=== PATIENT | female | born 1950 | race Caucasian/White ===

== ENCOUNTER → 2017-11-15 10:44 | Outpatient (CLI) | payer MEDICARE, SELFPAY ==
--- NOTE | 2017-11-15 11:10 | US_ITS ---
STUDY: THYROID ULTRASOUND REASON FOR EXAM: Female, 67 years old. Abnormal thyroid exam TECHNIQUE: Ultrasound evaluation of the thyroid was performed with real-time and static holden-scale imaging. COMPARISON: None. FINDINGS: RIGHT LOBE: The right lobe of the thyroid gland measures 4.2x1.8x2 cm. There is a homogeneous echotexture. Mid nodule measures 14 x 12 x 10 mm. The lesion is solid-cystic with regular margins and jyothi nodular doppler flow. LEFT LOBE: The left lobe of the thyroid gland measures 4.1x2.2x2.4 cm. There is a homogeneous echotexture. Mid nodule measures 10 x 7 x 6 mm. Inferior nodule measures 33 x 23 x 19 mm. Both lesions are solid with regular margins and intra- nodular doppler flow. ISTHMUS: The isthmus measures 3 mm US/Thyroid IMPRESSION: Bilateral thyroid nodules. The [employer] (AACE) in collaboration with the [employer] (RAMILA) and the Thyroid Association (ETA) published guidelines for the diagnosis and management of thyroid nodules. Biopsy of any solid and hypoechoic nodule larger than 1 cm in diameter. Thyroid nodules of any size undergo biopsy if the patient has been exposed to irradiation, has a family history of medullary carcinoma or multiple endocrine neoplasia, or has previously undergone partial thyroidectomy for thyroid cancer or if an elevated calcitonin level is present. The AACE/RAMILA/ETA guidelines recommend biopsy of nodules of any size with marked hypoechogenicity, irregular or microlobulated margins, a taller than wide configuration (anteroposterior dimension greater than transverse dimension), microcalcifications, or chaotic arrangement of intranodular vascular images or chaotic intranodular vascular spots. These guidelines recommend biopsy independent of size if ultrasonography suggests the presence of metastatic lymph nodes or if extracapsular growth is noted in the nodule. They recommend biopsy of the solid component of all complex cystic nodules because of the risk of cystic papillary carcinoma. They further suggest that nodules that are hot on scintigraphy do not require biopsy. -Current Guidelines for the Management of Thyroid Nodules. Devante Bates MD, KENNY, ECNU. Endocr Pract. 2012; 18(4): 596-599. Electronically Signed: Lei German MD at 18:06 EDT , Service support ,
== END ==
PROVIDERS: Family Provider Family Medicine; PCP Family Medicine; Visit Provider Family Medicine
DX: R94.6 Abnormal results of thyroid function studies (principal)
CPT/HCPCS: 76536

== ENCOUNTER → 2019-06-04 14:16 | Outpatient (CLI) | payer MEDICARE, OTHER, SELFPAY ==
[2019-06-04 14:23] LABS: Bacteria 0 SEEN /hpf (None Seen); Mucous, Urine 0 SEEN /hpf (<or=2+); Red Blood Cells-Urine 0 SEEN /hpf (0-5); Squamous Epithelial Cells - UA 0 SEEN /hpf (5-10)
[2019-06-04 15:39] LABS: Color, Urine Straw (Yellow); Glucose, Dipstick Normal (Normal); Ketone-Dipstick 5 mg/dl (Negative); Leukocyte Esterase-Dipstick 500 /ul (Negative); Nitrite-Dipstick Negative (Negative); Occult Blood-Urine Negative /ul (Negative); Protein-Dipstick Negative (Negative); Urine Bilirubin Dipstick Negative (Negative); Urine Clarity Clear (Clear); Urine Urobilinogen Normal (Normal); Urine pH 6.5 (5.0 - 8.0)
[2019-06-04 15:50] LABS: White Blood Cells 0-5 SEEN /hpf (0-5)
== END ==
LOC: LABSPEC 14:21
PROVIDERS: Visit Provider Obstetrics & Gynecology
DX: N39.0 Urinary tract infection, site not specified (principal)
CPT/HCPCS: 81001; 87086; 87088

== ENCOUNTER → 2019-07-24 08:25 | Outpatient (CLI) | payer MEDICARE, OTHER, SELFPAY ==
--- NOTE | 2019-07-24 08:36 | US_ITS ---
STUDY: RENAL ULTRASOUND - COMPLETE REASON FOR EXAM: Female, 69 years old. H/o stones TECHNIQUE: Ultrasound evaluation of the kidneys was performed with real-time and static romero-scale imaging. COMPARISON: 01/03/11. FINDINGS: Right kidney: Measures 10.4 cm. Normal contour. Renal cortical thickness appears normal. No cysts. No masses, stones, or hydronephrosis identified. Left kidney: Measures 11.3 cm. Normal contour. Renal cortical thickness appears normal. 1.3 cm cyst. No masses, stones, or hydronephrosis identified. Bladder: No intrinsic masses, stones, or abnormal dilatation noted. US/Kidney and Bladder IMPRESSION: No renal stones or hydronephrosis identified. Electronically Signed: Rocky Haddad, at 22:00 EDT Tel , Service support ,
== END ==
PROVIDERS: PCP Family Medicine; Referring Provider Urology; Visit Provider Urology
DX: N20.0 Calculus of kidney (principal); N20.9 Urinary calculus, unspecified
CPT/HCPCS: 76770

== ENCOUNTER 2019-09-16 06:02 | Day surgery (SDC) | payer MEDICARE, OTHER, SELFPAY ==
[2019-09-16 06:32] VITALS: BP 128/85; PULSE 73; RESP 16; TEMP 36.4; O2SAT 100; BMI 26.2
[2019-09-16] MEDS: Lactated Ringers 1,000 ML 100 ML IV (06:49)
--- NOTE | 2019-09-16 07:22 | HP.PCM_ITS ---
Problem List (1) Bladder stones Status: Acute (2) Uterovaginal prolapse, incomplete Status: Acute History of Present Illness Date of Admission: 09/16/19 Chief Complaint: bladder stones with recurrent urinary tract infections and intermittent urinary retention The patient is a 69 year old F who presented to the office for evaluation and management of pelvic organ prolapse. As part of the evaluation, a cystoscopy was performed, which revealed several calculi in the urinary bladder. She has had several urinary tract infections with intermittent urinary retention. This has been increasing in occurrence recently. She now presents for definitive surgical intervention. Risks, benefits and alternatives were discussed with the patient including but not limited to the risks of anesthesia, bleeding, infectio n, injury and the [place] [id number] public [facility] emergency. She understands and desires to proceed with surgical intervention at this time. Past Medical History Allergies Sulfa (Sulfonamide Antibiotics) Allergy (Verified 09/11/19 08:14) very sick and went to hospital Home Medications: Ambulatory Orders Medication Instructions Recorded Cholecalciferol (Vitamin D3) 50 mcg PO DAILY 07/25/19 [Vitamin D3] Lovastatin [Mevacor] 20 mg PO DAILY 07/25/19 L.acidoph,Paracasei, B.lactis 1 ea PO DAILY 09/11/19 [Probiotic] Phenazopyridine HCl [Pyridium] 200 mg PO PRN PRN 09/11/19 Cephalexin [Keflex] 500 mg PO TID 09/16/19 Smoking Status: Never smoker Tobacco Use: Non-smoker Review of Systems Constitutional: Denies: Chills, Fever Eyes: Denies: Vision Change HEENT: Denies: Difficulty Hearing, Difficulty Swallowing, Dysphasia Cardiovascular: Denies: Chest Pain, Chest Pressure, Chest Tightness Respiratory: Denies: Cough, Shortness of Breath Gastrointestinal: Denies: Abdominal Pain, Constipation, Nausea, Vomiting Genitourinary: Reports: Frequency, Hematuria, Retention, Urgency Gynecological: Denies: Breast symptoms, Vaginal discharge Musculoskeletal: Denies: Muscle pain Skin: Denies: Wounds Neurological: Denies: Difficulty swallowing Endocrine: Denies: Change in Body Habitus Hematologic/ Lymphatic: Denies: Adenopathy VTE Information - Inpt Only VTE Present on Admission: Yes VTE Mechan Device Prophylaxis: SCD's VTE Pharm Prophylaxis ordered?: No Reason prophylaxis not ordered:: Treatment Not Indicated Patient Problems: Active and Suspected Problems Bladder stones (Acute) Uterovaginal prolapse, incomplete (Acute) - Physical Exam Vitals/I&O's: Vital Signs Temp Pulse Resp BP Pulse Ox 97.5 F L 73 16 128/85 H 100 09/16/19 06:32 09/16/19 06:32 09/16/19 06:32 09/16/19 06:32 09/16/19 06:32 Oxygen Delivery Method Room Air Weight: 71.3 kg Body Mass Index (BMI) 26.2 General: Alert, Oriented x3, Cooperative, No apparent distress HEENT: Atraumatic, Normocephalic Oral: Moist Mucosa Neck: Supple, Trachea Midline Lungs: Clear to auscultation, Normal air movement Cardiovascular: Regular rate, Regular Rhythm Abdomen: Soft, Non Tender, Non-Distended Extremities: No edema Skin: No rashes Musculoskeletal: No Muscle Wasting Neurological: Cranial nerves II-XII grossly intact Psych/Mental Status: Normal Affect, Alert and oriented to time, place, person, mood and affect Current Medications Cefazolin Sodium 2 gm/ Sodium (Chloride) 110 mls @ 150 mls/hr IV PREOP ONE Stop: 09/16/19 07:43 Lactated Ringer's () 1,000 mls @ 100 mls/hr IV .Q10H JULIANA Last Admin: 09/16/19 06:49 Dose: 100 mls/hr Documented by: Assessment/Plan All Active Problems Bladder stones (Acute) Uterovaginal prolapse, incomplete (Acute) cystoscopy, laser lithotripsy, removal bladder stones Essential Procedure Criteria Procedure Essential: Yes Criteria Note: On 07/29/2019 the [facility] ([facility]) Public Order signed by [facility] Director Ayla Ramos M.D., regarding the Management of Non- Essential Surgeries and Procedures for the purpose of preserving Personal Protective Equipment (PPE) and critical hospital capacity and resources within [place] went into effect as of 07/30/2019 at 5:00PM. According to the [facility] Public Order: This action will remain in full force and effect until the State of Emergency declared by the Governor no longer exists or the Director of the [facility] rescinds or modifies this Order.. This [facility] order stated all non-essential or elective surgeries and procedures that utilize PPE should be delayed unless the re is undue risk to the current or future health of a patient. After reviewing the aforementioned [facility] Public Order and the patients clinical case, I have determined that the scheduled procedure meets the criteria to go forward. Risk to Patient if Procedure Delayed: Presence of severe symptoms causing an inability to perform ADL's - intermittent urinary retention and recurrent urinary tract infections, worsening
--- NOTE | 2019-09-16 07:29 | OP.PCM_ITS ---
Problem List (1) Bladder stones Status: Acute (2) Uterovaginal prolapse, incomplete Status: Acute Report of Operation Date of Procedure: 09/16/19 Pre-Operative Diagnosis: bladder stones, recurrent urinary tract infections, i ntermittent urinary retention Post-Operative Diagnosis: same Surgery/Procedure Performed:: cystoscopy, stone basket extraction Type of Anesthesia:: General Specimen's removed: bladder stones Description of Procedure: The patient is a 69-year-old female who presents for cystoscopy and removal of bladder calculi. The risks benefits and alternatives were discussed including but not limited to the risks of anesthesia, injury, bleeding, infection, and COVID 19 infection. The patient understood and desired to proceed. She was taken to the operating room and placed on the operating room table. Anesthesia monitored the head, neck, airway, IV access and vital signs thro ughout the case. Once anesthesia was appropriately administered, the patient was placed into dorsal lithotomy position was prepped and draped in usual sterile fashion. At this time, the cystoscope was inserted through the urethra under direct visualization and into the urinary bladder. Upon visualization, there were no bladder mucosal abnormalities including mass, ulceration or areas of erythema. There was one small stone remaining which was basket retrieved. The stones previously seen in the office were no longer within the urinary bladder. The patient's bladder was then emptied and the case was terminated. The patient was awakened and taken to the recovery room in good condition. There were no complications during the procedure. - Complications none - Admit VTE Documentation VTE Present on Admission: Yes VTE Mechan Device Prophylaxis: SCD's VTE Pharm Prophylaxis ordered?: No Reason prophylaxis not ordered:: Treatment Not Indicated
--- NOTE | 2019-09-16 07:30 | DCINST_ITS ---
Discharge Diet: No Restrictions Discharge Activity: May not drive while taking narcotic pain medications., May Shower May resume sexual activity in: 1 week Call your doctor if you observe: Fever of 101 or Higher, Inability to urinate, Inability to have a bowel movement, Uncontrolled pain Allergies/Adverse Reactions: Allergies Sulfa (Sulfonamide Antibiotics) Allergy (Verified 09/11/19 08:14) very sick and went to hospital Medications to take at Discharge Cholecalciferol (Vitamin D3) [Vitamin D3] 50 mcg PO DAILY 07/25/19 Lovastatin [Mevacor] 20 mg PO DAILY 07/25/19 L.acidoph,Paracasei, B.lactis [Probiotic] 1 ea PO DAILY 09/11/19 Phenazopyridine HCl [Pyridium] 200 mg PO PRN PRN 09/11/19 Cephalexin [Keflex] 500 mg PO TID 09/16/19 Primary Care Physician: Pedro Worthy MD [Primary Care Provider] - Test Results: Test results from this visit will be discussed in further detail at your follow- up appointment, if applicable. Please Follow Up With: Darshana Stephen MD When: office will call you to schedule urodynamics Proposed Discharge Date: 09/16/19
[2019-09-16] MEDS: Cefazolin 2 GM in 0.9% Normal Saline 100 ML IV (07:36)
[2019-09-16] MEDS: Lubricating Jelly 60 GM Tube 30 GM TOPICAL (07:44)
[2019-09-16 08:02] VITALS: BP 111/63; BP 128/85; PULSE 70; RESP 18; TEMP 36.9; O2SAT 10
[2019-09-16 08:05] VITALS: BP 105/66; BP 128/85; PULSE 68; RESP 18; O2SAT 98
[2019-09-16 08:15] VITALS: BP 106/64; BP 128/85; PULSE 71; RESP 18; TEMP 37.2; O2SAT 100
[2019-09-16 09:11] VITALS: BP 116/67; BP 128/85; PULSE 74; RESP 16; TEMP 36.2; O2SAT 98
== END 2019-09-16 09:23 | disposition home or self-care (01) ==
LOC: SDC 06:04 → AC 06:04
PROVIDERS: PCP Family Medicine; Referring Provider Urology; Visit Provider Urology
PROC: (CPT 52353; principal; 2019-09-16 07:20)
DX: N21.0 Calculus in bladder (principal); R33.9 Retention of urine, unspecified; Z87.440 Personal history of urinary (tract) infections; Z88.2 Allergy status to sulfonamides; N81.2 Incomplete uterovaginal prolapse
CPT/HCPCS: 52310; 52317; J7120; J2405

== ENCOUNTER 2019-11-13 09:45 | Observation (INO) | payer MEDICARE, OTHER, SELFPAY ==
[2019-11-07 17:12] LABS: International Normalized Ratio 1.1; Prothrombin Time (Protime)PT. 13.2 SECONDS (11.7-14.9)
[2019-11-07 17:13] LABS: Partial Thromboplast Time 27.9 Seconds (24.1-36.2)
[2019-11-13] VITALS (19 sets, daily range): BP systolic 84–140; BP diastolic 51–75; PULSE 58–79; RESP 14–18; TEMP 36.3–37.2; O2SAT 94–100; BMI 26.1
--- NOTE | 2019-11-13 01:00 | PCM.HPOB.BLA ---
- Problem List (1) Uterovaginal prolapse, incomplete Status: Acute History and Physical Date of Admission: 11/13/19 Surgical History and Physical Date: 11/13/2019 Name: HYUN CABEZAS Age: 69 Date of : 1950 Hyun Cabezas, a 69 year old female 2 0 0 0 2, presents for TVH, bilateral salpingectomy Dr Stephen to complete - AP repair, cystoscopy, Sacrospinous liegament suspension by on November 13, 2019 at 7:30. -- Pre-Op -- Hyun is here for her preop. TVH scheduled for 11/13/2019. Updated medications and allergies. Surgery consents reviewed and signed. hx uterovaginal prolapse, cystocele and rectocele scheduled for joint TVH with Dr. Stephen performing AP repair possible vaginal vault suspension procedure. [facility] MEDICATIONS HISTORY: Patient is also takin. lovastatin 20 mg tablet, daily ALLERGIES: Sulfa (Sulfonamide Antibiotics), Intolerance-unknown Infections - Chicken pox, Mumps and Measles Illnesses - Hyperlipidemia Accidents - no injuries of consequence Hospitalizations - see surgery Shingles; Review of Systems: GENERAL - Denies fever, or chills SKIN - Denies skin changes EYES - Denies visual changes EARS - Denies difficulty hearing NOSE - Denies nasal congestion or bleeding MOUTH - Denies sore throat or difficulty swallowing NECK - Denies pain or swelling RESPIRATORY - Denies shortness of breath or wheezing CARDIOVASCULAR - Denies palpitations or chest pain GASTROINTESTINAL - Denies nausea, vomiting, diarrhea, constipation GENITOURINARY - Denies dysuria, frequency of urination, incontinence of urine MUSCULOSKELETAL - Denies joint or muscle pain NEUROLOGICAL - Denies localized numbness or weakness PSYCHIATRIC - Denies depression or anxiety ENDOCRINE - Denies heat or cold intolerance, weight loss or gain HEMATO-IMMUNOLOGIC - Denies excesive bleeding with cuts SOCIAL HISTORY: Alcohol Use - denies drinking Smoking - denies smoking Diet - weight watchers Lifestyle - Exercise - daily Employer - Retired Illicit Drug Use - denies use of street drugs Sexual Activity - Spouse-Sig Other Name - Ari Spouse-Sig Other Occupation - Retired Control - menopause FAMILY HISTORY: MENSTRUAL HISTORY: LMP Known?- Postmenopausal, Age Onset Menarche - 12 PAST PREGNANCIES: Total Pregnancies - 2; Full Term Pregnancies - 2; Premature - 0; Abortions, Induced - 0; Abortions, Spontaneous - 0; Ectopics - 0; Multiple Births - 0; Living Children - 2 SURGICAL HISTORY: 1. Umbilical Hernia,2011 ; - 2. Parathyroid surgery, 2011 ; - PHYSICAL EXAM BP- 132/76 Sitting, Right arm, regular cuff Weight- 152.06156 lbs Height- 63.25 inch BMI:26.87 CONSTITUTIONAL - NAD, well nourished, and well developed SKIN - No rash, lesions, or ulcers HEENT - Normocephalic, PERRLA, EOMI LYMPH NODES - Palpation of lymph nodes in neck and groins within normal limits LUNGS - CTA x2 without wheezes, crackles or rales CARDIAC - Regular rate and rhythm without rubs, murmurs, or gallops ABDOMEN - Without hepatosplenomegaly, distention, masses, rebound, or guarding; normal bowel sounds; no hernias EXTREMITIES - No edema or calf tenderness NEUROLOGICAL - normal gait, normal balance, normal motor PSYCHIATRIC - A and O to time, place, person, mood and affect External Genitial Vagina - non-tender without lesions Urethra/Urethral Meatus - non-tender Bladder - non-tender Vagina - vaginal white are pink and moist without loss of rugae and no evidence of atrophy, cystocele, rectocele Cervix - without cervical motion tenderness and has normal size and features without evident lesions Uterus - 5-6 cm in size, mobile and nontender, Stage III uterovaginal prolapse Adnexa - clear without massess or tenderness Laboratory Tests 11/07/19 11/07/19 11/07/19 Range/Units 17:25 17:25 15:15 PT (11.7-14.9) SECONDS INR APTT (24.1-36.2) Seconds COVID-19 ([facility]) Results on MP report Not Detected (Not Detect) Blood Type A POSITIVE Antibody Screen NEGATIVE 11/07/19 Range/Units 07:10 PT 13.2 (11.7-14.9) SECONDS INR 1.1 APTT 27.9 (24.1-36.2) Seconds COVID-19 ([facility]) (Not Detect) Blood Type Antibody Screen ASSESSMENT/PLAN: 1. Cystocele, Unspecified, Incomplete Uterovaginal Prolapse and Rectocele Plan for TVH with prolapse repair by Dr. Stephen Discussed r/b ovarian conservation, following discussion plan for BSO. Procedural r/b/i/a reviewed Consents signed, preop instructions reviewed Preop labs with PCP reviewed and wnl. Continue vaginal estrogen Procedure Criteria Procedure Type: Elective COVID Risk Discussion: The surgeon/proceduralist and patient have discussed in detail the risk of exposure to and/or potential harm posed by the COVID-19 virus with having a surgery/procedure at this time versus the risk of delaying the surgery/procedure. It is not possible to know either the risk of delaying the surgery or procedure or chance of getting an infection with perfect accuracy, but a joint decision was made between the patient and the surgeon/proceduralist to proceed at this time with the scheduled surgery/procedure as indicated on the consent form.
[2019-11-13] MEDS: Lactated Ringers 1,000 ML 100 ML IV ×3 (06:38→12:19)
--- NOTE | 2019-11-13 07:30 | HYST_PTH ---
PATIENT: AYLEEN CABEZAS LOC: MS3 U#:[id number] AGE/SX: 69/F [place] [facility] [place]/13/[address]: Dr. Keyla Zhou MD : 1950 BED: 1 DIS: 11/14/2019 SPEC #: [id number] RECD: 11/13/19 12:27 STATUS: YFN REKuldip #: [id number] GLORIA: 11/13/19 07:[address]: Keyla Wolff DEPT: SURGICAL PATHOLOGY RECD BY: eNy Rodriguez ENTERED: 11/13/19 12:36 SP TYPE: HYSTERECT OTHR DR: MD Dr. Darshana Bennett MD Tissues: Uterus, NOS Procedures: Surgery Specimen Level V HEADER OPERATION: Total vaginal hysterectomy, bilateral salpingo-oophorectomy PRE-OP DIAGNOSIS: Cystocele, incomplete uterovaginal prolapse and rectocele TISSUE SUBMITTED: Uterus, cervix, bilateral fallopian tubes and ovaries, vaginal mucosa MICROSCOPIC DIAGNOSIS Uterus, cervix, bilateral fallopian tubes and ovaries, vaginal hysterectomy and bilateral salpingectomy: Cervix - acute and chronic cystic cervicitis with squamous metaplasia and reactive epithelial changes. Endometrium - simple cystic endometrial hyperplasia without atypia. Endometrial polyp - simple endometrial hyperplasia without atypia. Myometrium - focal adenomyosis. Bilateral fallopian tubes - no pathologic diagnosis. Right ovary - no pathologic diagnosis. 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 SJ:jelena 11/17/19 COMMENT Case has been reviewed in consultation with Dr. Owens who concurs with the above diagnosis. IDC:AM MICROSCOPIC DESCRIPTION Slides are reviewed. GROSS DESCRIPTION Received in fixative is one container labeled with the patient's name and designated uterus, cervix, bilateral fallopian tubes and bilateral ovaries. The specimen consists of a hysterectomy specimen consisting of uterus with cervix, attached right fallopian tube, left fallopian tube and left ovary and detached ovary consistent with right ovary. Detached mucosal tissue consistent with vaginal mucosa is not identified. The uterus with cervix weighs 82 gm and measures 9.5 x 5.5 x 3.5 cm. The serosal surface is stack, glistening. The ectocervical mucosa is unremarkable. The external os is circular in contour. The endocervical canal measures 3.5 cm in length and the endocervical mucosa is unremarkable. The triangular endometrial cavity measures 5.5 cm in length and up to 3.5 cm in width. The endometrium shows a polyp at the fundus in the posterior uterine wall measuring 2 x 1.2 x 0.2 cm. The myometrial wall underneath the polyp is not indurated. The rest of the endometrium measures 0.1 cm in thickness. Sections of the uterine wall do not reveal any mass lesion and it measures up to 2 cm in thickness. The right fallopian tube measures 4.5 cm in length and 0.4 cm in diameter. The fimbrial end is not identified. Sections reveal unremarkable cut surfaces. The detached right ovary measures 2 x 1.5 x 1 cm. Sections reveal unremarkable cut surfaces. The left fallopian tube measures 5.5 cm in length and 0.5 cm in diameter. The fimbrial end is identified. Sections reveal unremarkable cut surfaces. Tubo-ovarian adhesions are not identified. The left ovary measures 3.5 x 1.5 x 1 cm. Sections reveal a hemorrhagic cyst measuring 1.5 cm in greatest dimension. Supervisor Sample Preparation sections are submitted in 11 cassettes as follows: 1 - anterior cervix, 2 - posterior cervix, 3 & 4 - anterior uterine wall, 5 & 6 - posterior uterine wall, 7 - endometrial polyp with underlying uterine wall, entirely submitted, 8 - right fallopian tube, 9 - right ovary, 10 - left fallopian tube and left ovary, 11 - left ovary. / RAMONE:jelena 11/13/19 TC:3 CPT: 12425
[2019-11-13] MEDS: Heparin Injection (Vial) 5,000 UNIT/ML VIAL 5000 UNIT SC ×2 (07:32→18:24)
[2019-11-13] MEDS: Lubricating Jelly 60 GM Tube 30 GM TOPICAL (08:03)
--- NOTE | 2019-11-13 08:39 | HP.PCM_ITS ---
Problem List (1) Uterovaginal prolapse, incomplete Status: Acute History of Present Illness Date of Admission: 11/13/19 Chief Complaint: pelvic organ prolapse The patient is a 69 year old F with pelvic organ prolapse and difficulty with voiding to the point that she developed bladder stones. She now presents for definitive management of her prolapse after having urodynamics and cystoscopy and removal of stones. Risks, benefits and alternatives were discussed and she desires to proceed. Past Medical History Allergies Sulfa (Sulfonamide Antibiotics) Allergy (Verified 11/06/19 14:08) very sick and went to hospital Home Medications: Ambulatory Orders Medication Instructions Recorded Cholecalciferol (Vitamin D3) 50 mcg PO DAILY 07/25/19 [Vitamin D3] Lovastatin [Mevacor] 20 mg PO DAILY 07/25/19 L.acidoph,Paracasei, B.lactis 1 ea PO DAILY 09/11/19 [Probiotic] Phenazopyridine HCl [Pyridium] 200 mg PO PRN PRN 09/11/19 Smoking Status: Never smoker Tobacco Use: Non-smoker Review of Systems Constitutional: Denies: Anorexia, Chills, Fever Eyes: Denies: Vision Change HEENT: Denies: Difficulty Swallowing Cardiovascular: Denies: Chest Pain, Chest Pressure Respiratory: Denies: Cough, Shortness of Breath Gastrointestinal: Denies: Abdominal Pain, Nausea, Vomiting Genitourinary: Reports: Retention, Urgency. Denies: Hematuria Gynecological: Denies: Vaginal discharge Musculoskeletal: Denies: Muscle pain Skin: Denies: Wounds Neurological: Denies: Difficulty swallowing Endocrine: Denies: Change in Body Habitus Hematologic/ Lymphatic: Denies: Adenopathy VTE Information - Inpt Only VTE Present on Admission: Yes VTE Mechan Device Prophylaxis: SCD's VTE Pharm Prophylaxis ordered?: Yes - Physical Exam Vitals/I&O's: Vital Signs Temp Pulse Resp BP Pulse Ox 97.3 F L 64 14 140/68 H 100 11/13/19 06:05 11/13/19 06:05 11/13/19 06:05 11/13/19 06:05 11/13/19 06:05 Oxygen Delivery Method Room Air Weight: 70.1 kg Body Mass Index (BMI) 26.1 Intake and Output for Last 24 Hours 11/11/19 11/12/19 11/13/19 23:59 23:59 23:59 Intake Total 100 / 100 Balance 100 / 100 General: Alert, Oriented x3, Cooperative, No apparent distress HEENT: Atraumatic, Normocephalic Oral: Moist Mucosa Neck: Supple, Trachea Midline Lungs: Normal air movement Cardiovascular: Regular rate, Regular Rhythm Abdomen: Soft, Non Tender, Non-Distended Extremities: No clubbing Skin: No rashes Musculoskeletal: No Muscle Wasting Neurological: Cranial nerves II-XII grossly intact, Neuro grossly intact Psych/Mental Status: Normal Affect, Alert and oriented to time, place, person, mood and affect Current Medications Lactated Ringer's () 1,000 mls @ 100 mls/hr IV .Q10H JULIANA Last Admin: 11/13/19 06:38 Dose: 100 mls/hr Documented by: Assessment/Plan All Active Problems Bladder stones (Acute) Uterovaginal prolapse, incomplete (Acute) anterior repair, sacrospinous ligament fixation with dermis, cystoscopy Procedure Criteria Procedure Type: Elective COVID Risk Discussion: The surgeon/proceduralist and patient have discussed in detail the risk of exposure to and/or potential harm posed by the COVID-19 virus with having a surgery/procedure at this time versus the risk of delaying the surgery/procedur e. It is not possible to know either the risk of delaying the surgery or procedure or chance of getting an infection with perfect accuracy, but a joint decision was made between the patient and the surgeon/proceduralist to proceed at this time with the scheduled surgery/procedure as indicated on the consent form.
--- NOTE | 2019-11-13 08:43 | OP.PCM_ITS ---
Problem List (1) Uterovaginal prolapse, incomplete Status: Acute Report of Operation Date of Procedure: 11/13/19 Pre-Operative Diagnosis: pelvic organ prolapse Post-Operative Diagnosis: same Surgery/Procedure Performed:: anterior repair with dermis, bilateral sacrospinous ligament fixation, posterior repair, cystoscopy Type of Anesthesia:: General Specimen's removed: None Estimated Blood Loss (mL): 25 cc Description of Procedure: The patient is a 69-year-old female who has had significant pelvic organ prolaps e with retention of urine and bladder calculi. She underwent urodynamics and cystoscopy with removal of stones and now presents for definitive management of her prolapse. Risks benefits and alternatives were discussed including that of anesthesia, bleeding, infection, injury and COVID-19 specific risks. She understood and agreed to proceed. The patient was taken to the operating room and placed on the operating room table. Anesthesia monitored the head, neck, airway, IV access and vital signs throughout the case. Once anesthesia was appropriate ministered the patient was placed into dorsal lithotomy position and Dr. Jordyn Zhou performed a hysterectomy bilateral oophorectomy. The case was then turned over to ms following closure of the cuff which was performed in a vertical fashion. The anterior vaginal wall was isolated and injected submucosally with vasopressin for hydrostatic dissection and hemostatic control. A vertical incision approximately 2 cm in length was then made and sharp and blunt dissection was performed on either side. Dissection continued down to the ischial spines and the sacrospinous ligaments were identified and freed from surrounding tissues. The Capio device was then used to place an Ethibond suture 2 fingerbreadths from the ischial spine on both sides. The suture was then brought through a trimmed piece of dermis and then at the location of the apex through full-thickness vaginal mucosa. The dermis was then trimmed to length and sutured in interrupted fashion on either side of the periurethral space. The dermis was flat and an appropriate size for her vagina. It was trimmed on the sides and there is no not a significant easy place to suture the dermis laterally at the white line. At this time the vaginal mucosa was closed with running interlocking 2-0 Vicryl suture. The apex sutures were then tied down and the prolapse was reduced. Attention was then turned towards the posterior wall where the perineal body lacked support and there was a small rectocele distally. The submucosa was injected once again with vasopressin and an incision was made. Both sharp and blunt dissection was performed up to the level and just beyond the level of the rectocele defect. The rectovaginal fascia was identified and brought together in 2 layer closure and the perineal body was brought together in symmetric fashion in 2 layer closure as well. At this time the vaginal wall was closed with running interlocking 2-0 Vicryl. A cystourethroscopy was performed through the urethra, revealing no injury to the urinary bladder or urethra. Bilateral ureteral orifices were located in the area of the trigone. The patient was given methylene blue intravenously. Blue- tinged urine was seen from each ureteral orifice with a good jet. The Petersen catheter was replaced and the bladder was emptied. Vaginal packing was placed with estrogen cream. The patient was awakened and taken to the recovery room in good condition. There are no complications during this procedure. Grafts/Implants Used: Dermis, [place] from [employer] - Complications none - Admit VTE Documentation VTE Present on Admission: Yes VTE Mechan Device Prophylaxis: SCD's VTE Pharm Prophylaxis ordered?: Yes
--- NOTE | 2019-11-13 08:44 | DCINST_ITS ---
<Darshana Stephen - Last Filed: 11/13/19 08:44> Discharge Diet: No Restrictions Discharge Activity: May not drive while taking narcotic pain medications., May Shower May resume sexual activity in: 8 weeks Lifting Restrictions: no lifting over 5 pounds Additional Activity Instructions:: no strenuous activity, no exercise, no sexual activity, no swimming, hot tubs or tub bathing Call your doctor if your incision/area has: Continuous Slow Oozing, Sudden Increased Bleeding, Increased Pain/ Swelling, Foul Smelling Discharge Call your doctor if you observe: Fever of 101 or Higher, Inability to urinate, Inability to have a bowel movement, Uncontrolled pain Allergies/Adverse Reactions: Allergies Sulfa (Sulfonamide Antibiotics) Allergy (Verified 11/06/19 14:08) very sick and went to hospital Medications to take at Discharge Cholecalciferol (Vitamin D3) [Vitamin D3] 50 mcg PO DAILY 07/25/19 Lovastatin [Mevacor] 20 mg PO DAILY 07/25/19 L.acidoph,Paracasei, B.lactis [Probiotic] 1 ea PO DAILY 09/11/19 Phenazopyridine HCl [Pyridium] 200 mg PO PRN PRN 09/11/19 Primary Care Physician: Pedro Worthy MD [Primary Care Provider] - Test Results: Test results from this visit will be discussed in further detail at your follow- up appointment, if applicable. Please Follow Up With: Darshana Stephen MD When: call office for appt <Keyla Wolff - Last Filed: 11/13/19 10:33> Call your doctor if you observe: Using more than one pad per hour, Shortness of breath, Chest pain, Calf discomfort Suture Line Care: Avoid Pulling/Pushing Test Results: Test results from this visit will be discussed in further detail at your follow- up appointment, if applicable. Please Follow Up With: Keyla Ralph MD When: November 25 at 1:15pm
[2019-11-13] MEDS: Vasopressin 20 UNITS/ML Vial (09:28)
--- NOTE | 2019-11-13 09:52 | OP.PCM_ITS ---
Problem List (1) Uterovaginal prolapse, incomplete Status: Acute Report of Operation Date of Procedure: 11/13/19 Pre-Operative Diagnosis: 1. Uterovaginal prolapse Post-Operative Diagnosis: 1. Uterovaginal prolapse Surgery/Procedure Performed:: 1. Total vaginal hysterectomy. 2. Bilateral salpingo-oophorectomy. 3. Modified Coreas culdoplasty Description of Surgical Findings:: Normal tubes and ovaries bilaterally uterine procidentia Cystocele and rectocele automotive service assistant: Maryam Catalan Type of Anesthesia:: General Anesthesiologist: Wu Rendon Specimen's removed: uterus, cervix, bilateral tubes and ovaries Estimated Blood Loss (mL): 50 Description of Procedure: Indications: 69-year-old para 2 with a history of uterovaginal prolapse, cystocele and rectocele presents for scheduled TVH, BSO to be followed by AP repair, sacrospinous ligament fixation performed by Dr. Stephen. Procedural risks, benefits, indications and alternatives were reviewed. The patient desired to proceed surgically. She and her were given opportunity to ask questions prior to the procedure and questions were answered to their satisfaction. Procedure: The patient was brought to the operating room and signed was performed. She is placed in the dorsal supine position and induced under general anesthesia and intubated. She was repositioned into dorsolithotomy and examination under anesthesia performed revealing uterine positive intra-with cystocele and rectocele. The perineum was prepped and draped in sterile fashion. Straight catheterization of the bladder was performed. Patient was repositioned to high lithotomy and a weighted speculum was placed into the vagina the cervix was grasped using a single-tooth tenaculum. A total of 20 cc of dilute vasopressin (10 units in 100 cc normal saline) was injected cervically. A circumferential incision was made around the cervix using the scalpel. The vesicouterine membrane was dissected sharply and the curved Tez placed anteriorly however the anterior cul-de-sac peritoneum remained high in the pelvis. Attention was then turned posteriorly and the weighted speculum was removed. The rectovaginal septum was dissected to the level of the uterosacral ligament. The posterior cul-de-sac was entered sharply. A long weighted speculum was replaced vaginally and into the posterior cul-de-sac. The right than left uterosacral ligaments were Lexx clamped, cut and suture ligated using 0 Vicryl. 0 Vicryl was used for all sutures during this case. This was followed by serial clamping, cutting and suture ligation of the cardinal ligaments and uterine arteries bilaterally with care taken to incorporate each pedicle with the previous pedicle. The left tube was followed to its fimbria and the left infundibulopelvic ligament was isolated, clamped, cut and doubly suture ligated. At the right, the mesosalpinx was clamped, cut and suture ligated with freeing of the uterus, cervix, bilateral tubes and left ovary en bloc. The right ovary was grasped using [place] clamp and the right infundibulopelvic ligament was clamped, cut and doubly suture ligated with oophorectomy performed. The pelvic peritoneum was pursestringed with incorporation of the bilateral uterosacral ligaments to close off the cul-de-sac. The vaginal cuff was reapproximated using serial figure of 8 sutures with excellent hemostasis. At this time the procedure was turned over to Dr. Stephen. - Complications none - Admit VTE Documentation VTE Present on Admission: No VTE Mechan Device Prophylaxis: SCD's VTE Pharm Prophylaxis ordered?: Yes
[2019-11-13] MEDS: Estrogens,Conj. 1 Tube 1 DOSE (10:45)
[2019-11-13 12:26] LABS: Bedside Glucose 112 mg/dL (70-110)
[2019-11-13] MEDS: Acetaminophen 500 MG Tablet 1000 MG PO ×2 (15:38→23:33)
[2019-11-13] MEDS: Cefazolin 1 GM/50 ML BAG IV ×2 (15:38→23:34)
[2019-11-13] MEDS: oxyCODONE 5 MG Tablet PO (15:41)
[2019-11-13] MEDS: Ketorolac 15 MG/ML Vial IV ×2 (18:24→23:35)
[2019-11-13] MEDS: 0.9% Saline Lock 10 ML Syringe IV (23:42)
[2019-11-14] MEDS: oxyCODONE 5 MG Tablet PO (03:48)
[2019-11-14 03:50] VITALS: BP 103/53; PULSE 63; RESP 18; TEMP 36.4; O2SAT 95
[2019-11-14] MEDS: Ketorolac 15 MG/ML Vial IV ×2 (06:26→11:24)
[2019-11-14] MEDS: Heparin Injection (Vial) 5,000 UNIT/ML VIAL 5000 UNIT SC (06:27)
[2019-11-14] MEDS: Acetaminophen 500 MG Tablet 1000 MG PO ×2 (06:31→14:50)
[2019-11-14 06:39] LABS: Hematocrit 37.6 % (37-47); Hemoglobin 12.1 g/dL (12.0-15.0); Mean Corp Hgb Conc 32.2 g/dL (32-36); Mean Corpuscular Hgb 29.7 pg (27.0-32.0); Mean Corpuscular Volume 92.4 fL (81-99); Mean Platelet Vol. 10.3 fl (6.2-12.0); Platelet Count 162 K/mm3 (150-450); RBC Distribution Width CV 14.6 % (11.6-14.6); RBC Distribution Width SD 49.1 fl (35.1-43.9); Red Blood Count 4.07 M/mm3 (4.2-5.4); White Blood Count 8.1 K/mm3 (4.4-11.0)
[2019-11-14 07:06] LABS: Creatinine, Serum 0.59 mg/dL (0.55-1.02); EST Glomerular Filtration Rate 107 mL/min (>60); Est Glom Filt Rate - Afr Amer 130 mL/min (>60); Estimated Creatinine Clearance 45.85 ml/min
[2019-11-14 07:46] VITALS: O2SAT 96
--- NOTE | 2019-11-14 08:08 | PCM.PN.BLA ---
Progress Note Up eating breakfast. Passing gas. No back or abdominal pain. Little dizzy with narcotics. AFVSS good urine output. abdomen soft. urine clear. SCD's in place. Petersen removed without difficulty. Packing removed. POD#1 Trial of void today home later this afternoon post-op restrictions continue estrogen cream STROKE Vital Signs/Narrative: Vital Signs Pulse Ox 11/14/19 07:46 96
--- NOTE | 2019-11-14 08:52 | PN.OBGYN_ITS ---
Subjective: No issues overnight. Pain is minimal. No flatus yet. Denies chest pain, shortness of breath. Denies bleeding. OOB without difficulty. Objective: AVSS - Physical Exam Vitals/I&O's: Vital Signs Temp Pulse Resp BP Pulse Ox 97.6 F L 63 18 103/53 L 96 11/14/19 03:50 11/14/19 03:50 11/14/19 03:50 11/14/19 03:50 11/14/19 07:46 Oxygen Delivery Method Room Air Weight: 70.1 kg Body Mass Index (BMI) 26.1 Finger Stick Blood Glucose 112 Intake and Output for Last 24 Hours 11/12/19 11/13/19 11/14/19 23:59 23:59 23:59 Intake Total 3486.75 / 3486.75 250 / 250 Output Total 2650 / 2650 475 / 475 Balance 836.75 / 836.75 -225 / -225 General: Alert, Oriented x3, Cooperative, No apparent distress HEENT: Atraumatic, Normocephalic Lungs: Normal air movement Cardiovascular: Regular rate, Regular Rhythm Abdomen: Soft, Non Tender, Non-Distended Extremities: No edema, No Calf Tenderness Neurological: Neuro grossly intact Psych/Mental Status: Normal Affect, Appropriate, Alert and oriented to time, place, person, mood and affect Laboratory Results 11/13/19 12:20: POC Glucose 112 H 11/14/19 06:10: WBC 8.1, RBC 4.07 L, Hgb 12.1, Hct 37.6, MCV 92.4, MCH 29.7, MCHC 32.2, RDW Std Deviation 49.1 H, RDW Coeff of Cait 14.6, Plt Count 162, MPV 10.3 11/14/19 06:10: Creatinine 0.59, Estim Creat Clear Calc 45.85, Est GFR (MDRD) Af Amer 130, Est GFR (MDRD) Non-Af 107 Current Medications Acetaminophen (Tylenol) 1,000 mg PO Q8 [facility] Last Admin: 11/14/19 06:31 Dose: 1,000 mg Documented by: Heparin Sodium (Porcine) (Heparin Na) 5,000 unit SC 0700,1900 [facility] Last Admin: 11/14/19 06:27 Dose: 5,000 unit Documented by: Hydromorphone HCl (Dilaudid Inj) 0.5 - 1.5 mg IV Q3H PRN PRN PRN Reason: Pain Score 4-10/10 Sodium Chloride () 250 mls @ 15 mls/hr IV .[id number] PRN PRN Reason: Saline Flush Last Infusion: 11/13/19 16:20 Dose: 15 mls/hr Documented by: Ketorolac Tromethamine (Toradol (Bkc)) 15 mg IV Q6H JULIANA Stop: 11/18/19 11:44 Last Admin: 11/14/19 06:26 Dose: 15 mg Documented by: Ondansetron HCl (Zofran) 4 mg IV Q4H PRN PRN PRN Reason: NAUSEA Oxycodone HCl (Oxyir) 5 - 10 mg PO Q4H PRN PRN PRN Reason: Pain Score 4-10/10 Last Admin: 11/14/19 03:48 Dose: 5 mg Documented by: Simethicone (Mylicon) 80 mg PO [facility] Last Admin: 11/13/19 23:29 Dose: 80 mg Documented by: Sodium Chloride () 10 - 40 ml IV UD PRN PRN Reason: SALINE FLUSH Last Admin: 11/13/19 23:42 Dose: 10 ml Documented by: Medical Necessity - Tobacco Use Smoking Status: Never smoker Tobacco Use: Non-smoker Assessment/Plan All Active Problems Bladder stones (Acute) Uterovaginal prolapse, incomplete (Acute) pod#1 s/p TVH, BSO -doing well -may d/c later today
[2019-11-14 11:22] VITALS: BP 101/61; PULSE 64; RESP 18; TEMP 36.9; O2SAT 96
--- NOTE | 2019-11-14 11:47 | NURSING ---
Pt has gotten out of bed and walked in marte. Pt is aware to call and let this nurse know when she voids. Measuring hat in toilet. Pt also is aware that after she voids, needs bladder scanned. Pt is aware.
--- NOTE | 2019-11-14 11:55 | CASEMGMT ---
JONNA HOYOS NOTE To room to review HEATH form. JONNA HOYOS introduced self and role of RN CM. Reviewed HEATH form and questions answered. Form signed by pt, copy made and placed on chart, and original given to pt. Denis BROWN RN, CM
--- NOTE | 2019-11-14 12:12 | CASEMGMT ---
RN CM NOTE: To room to talk w/pt to compLete RN CM assessment. Pt is very painful and asks for RN CM to come back at a later time. JONNA Felix, aware of pt's pain. Denis DELGADILLON RN CM
--- NOTE | 2019-11-14 12:36 | NURSING ---
Pt up and voided 400cc. This nurse bladder scanned pt for 214. Will call Dr. Stephen at this time.
--- NOTE | 2019-11-14 12:39 | NURSING ---
Dr. Stephen wants pt to have less then 150cc in her bladder after voiding. order for pt to void again and have bladder scanned and then to call Dr. Stephen back again.
--- NOTE | 2019-11-14 14:07 | NURSING ---
Addendum entered by Vianney Moraes 11/14/19 14:34: Dr. Stephen per phone said it was okay to discharge pt without crabtree. Addendum entered by Vianney Moraes 11/14/19 14:10: Dr. Stephen aware of the bladder scan and post void results. Dr. Enriquez is going to discharge pt. Original Note: Pt voided again, 300cc and bladder scanned for 78ml.
[2019-11-14 15:10] VITALS: BP 101/67; PULSE 68; RESP 16; TEMP 36.7; O2SAT 98
== END 2019-11-14 15:06 | disposition home or self-care (01) ==
LOC: SDC 10:25 → MS3 10:25
PROVIDERS: Anesthesiology; Urology; Admitting Provider Obstetrics & Gynecology; PCP Family Medicine; Referring Provider Obstetrics & Gynecology; Visit Provider Obstetrics & Gynecology
PROC: (CPT 58260; principal; 2019-11-13 07:10)
PROC: (CPT 57260; 2019-11-13 07:10)
DX: N81.2 Incomplete uterovaginal prolapse (principal); Z11.59 Encounter for screening for other viral diseases; E78.5 Hyperlipidemia, unspecified; Z79.899 Other long term (current) drug therapy; Z87.442 Personal history of urinary calculi; Z86.39 Personal history of other endocrine, nutritional and metabolic disease; Z87.19 Personal history of other diseases of the digestive system; E83.119 Hemochromatosis, unspecified
CPT/HCPCS: 00940; 57260; 57282; 58263; 36415; 82565; 82962; 85027; 85610; 85730; 86850; 86900; 86901; 87635; 88307; 96365; 96366; 96372; 96375; 96376; 99218; 99251; G2023; J7050; J7120; A4216; C1758; G0378; G0379; G0463; J2405; Q9968; U0003

== ENCOUNTER → 2019-11-20 12:20 | Outpatient (CLI) | payer MEDICARE, OTHER, SELFPAY ==
[2019-11-13 06:05] VITALS: BMI 26.1
--- NOTE | 2019-11-20 12:23 | US_ITS ---
STUDY: THYROID ULTRASOUND REASON FOR EXAM: Female, 69 years old. NODULES TECHNIQUE: Ultrasound evaluation of the thyroid was performed with real-time and static holden-scale imaging. COMPARISON: Comparison is made with prior examination dated November 15, 2017. FINDINGS: RIGHT LOBE: The right lobe of the thyroid gland measures 4.1 cm x 1.8 cm x 1.4 cm. There is a homogeneous echotexture. There is a 1.7 cm x 1.3 cm x 1.2 cm cystic/solid nodule in the midpole of the right lobe. This has increased slightly in size as compared to prior examination. A biopsy is recommended for further evaluation. LEFT LOBE: The left lobe of the thyroid gland measures 4.5 cm x 2 cm x 1.9 cm. There is a heterogeneous echotexture. There is a dominant 2.7 cm x 2.3 cm x 1.9 cm solid/cystic nodule in the midpole. This has decreased in size as compared to prior study. There is also evidence of a 7 mm x 9 mm x 5 mm mixed solid/cystic nodule in the upper pole. ISTHMUS: The isthmus measures 3.0 mm. The regional lymph nodes are normal. US/Thyroid IMPRESSION: Since prior study, there has been enlargement of a cystic/solid nodule in the midpole of the right lobe of the thyroid. A biopsy is recommended for further evaluation. A dominant solid/cystic nodule is also seen in the left lobe. A biopsy is recommended as well. Electronically Signed: Jeff Damico, at 13:16 EDT , Service support ,
== END ==
PROVIDERS: PCP Family Medicine; Referring Provider Family Medicine; Visit Provider Family Medicine
DX: E04.1 Nontoxic single thyroid nodule (principal)
CPT/HCPCS: 76536

== ENCOUNTER 2022-11-07 08:54 | Day surgery (SDC) | payer MEDICARE, OTHER, SELFPAY ==
[2022-11-07] VITALS (10 sets, daily range): BP systolic 106–135; BP diastolic 56–95; PULSE 77–92; RESP 14–18; TEMP 36.2–37.2; O2SAT 93–100; BMI 29.0
--- NOTE | 2022-11-07 09:10 | PCM.HP.STD ---
HPI - General General Date of Service: 11/07/22 Chief Complaint: Screening for intestinal cancer HPI Narrative AYLEEN CABEZAS, is a 72 F who presents via open access today. She had a previous screening colonoscopy by myself September 2012. She denies bright red blood per rectum or melena. No abdominal pain. She otherwise enjoys good health. No bright red blood per rectum or melena. No abdominal pain. Over the years she has had an intentional 50 pound weight loss. She reminds me I took out a parathyroid for and repaired an umbilical hernia. [facility] Medical History (Updated 11/03/22 @ 15:47 by Camryn Perez) Arthritis Heartburn Hyperlipidemia Leg cramps Non-smoker PONV (postoperative nausea and vomiting) Wears glasses Home Medications cholecalciferol (vitamin D3) 50 mcg (2,000 unit) tablet 50 mcg PO DAILY 07/25/19 [History Last Taken 11/12/19] lovastatin 20 mg tablet 20 mg PO QHS 07/25/19 [History Last Taken 11/12/19] L.acidoph, paracasei,B. lactis 10 billion cell capsule 1 ea PO DAILY 09/11/19 [History Last Taken 11/12/19] mv-min-vit C 250 xs-fhhigf-utfmm HCl-herb 124 12.5 mg chewable tablet (Immune Support) 1 tab PO .4XW 09/04/22 [History Last Taken Unknown] acetaminophen 650 mg tablet 650 mg PO Q6H PRN Pain 11/03/22 [History Last Taken Unknown] ascorbic acid (vitamin C) 500 mg tablet (Vitamin C) 500 mg PO MOWEFR 11/03/22 [History Last Taken Unknown] Allergy/AdvReac Type Severity Reaction Status Date / Time Sulfa (Sulfonamide Allergy very sick Verified 11/07/22 09:31 Antibiotics) and went to hospital Family History (Updated 09/04/22 @ 09:37 by Magdalena Najera) Father Ulcerative colitis Surgical History (Updated 11/03/22 @ 15:39 by Camryn Perez) History of colonoscopy History of parathyroidectomy History of total vaginal hysterectomy (TVH) History of umbilical hernia repair Social History Smoking Status: Never smoker ROS Constitutional Constitutional: Reports systems reviewed and no addt'l complaints, except as documented Cardiovascular Cardiovascular: Denies chest pain Respiratory/Chest Respiratory/Chest: Denies shortness of breath at rest Gastrointestinal Gastrointestinal: Denies abdominal pain, change in bowel habits, hematochezia or melena Physical Exam Const alert, oriented x3 and no apparent distress General Appearance: cooperative and comfortable Eyes General Eye: normal appearance of both eyes Neck General: normal visual inspection Chest inspection of chest normal Resp Effort and Inspection: able to speak in complete sentences and symmetric chest movement Auscultation: clear to auscultation bilaterally Cardio regular rate and regular rhythm GI soft to palpation, non-tender and non-distended Extremity no calf tenderness Neuro oriented x3 Psych thought process normal Assessment & Plan Assessment/Plan (1) Encounter for screening for malignant neoplasm of colon: PLAN: 72-year-old female presents via open access today for screening colonoscopy. She is aware of the technique, benefit, risk, alternatives. She has had an opportunity to ask and have questions answered. We will proceed as noted. Devante Cook M.D., F.A.C.S.
[2022-11-07] MEDS: Lactated Ringers 1,000 ML 15 ML IV (09:34)
--- NOTE | 2022-11-07 10:09 | OP.COLON_ITS ---
Patient Name: Hyun Garcia Procedure Date: 11/07/2022 9:45 AM Date of : 1950 Age: 72 Procedure: Colonoscopy Indications: Screening for colorectal malignant neoplasm Providers: Devante Cook MD Referring MD: Devante Cook MD Medicines: See the Anesthesia note for documentation of the administered medications Patient Profile: Last Colonoscopy: 10 years ago. Complications: No immediate complications. Procedure: Pre-Anesthesia Assessment: - Prior to the procedure, a History and Physical was performed, and patient medications and allergies were reviewed. The patient's tolerance of previous anesthesia was also reviewed. The risks and benefits of the procedure and the sedation options and risks were discussed with the patient. All questions were answered, and informed consent was obtained. Prior Anticoagulants: The patient has taken no previous anticoagulant or antiplatelet agents. ASA Grade Assessment: II - A patient with mild systemic disease. After reviewing the risks and benefits, the patient was deemed in satisfactory condition to undergo the procedure. After I obtained informed consent, the scope was passed under direct vision. Throughout the procedure, the patient's blood pressure, pulse, and oxygen saturations were monitored continuously. The pediatric colonoscope was introduced through the anus and advanced to the cecum, identified by appendiceal orifice and ileocecal valve. The colonoscopy was performed without difficulty. The patient tolerated the procedure well. The quality of the bowel preparation was good. The ileocecal valve and the appendiceal orifice were photographed. Scope In: 9:53:26 AM Scope Withdrawal Time 0 hours 6 minutes 12 seconds Scope Out: 10:04:12 AM Total Procedure Duration Time 0 hours 10 minutes 46 seconds Findings: The digital rectal exam findings include non-thrombosed external hemorrhoids, non-thrombosed internal hemorrhoids and internal hemorrhoids that prolapse with straining, but spontaneously regress to the resting position (Grade II). A few diverticula were found in the sigmoid colon. The exam was otherwise without abnormality. Impression: - Non-thrombosed external hemorrhoids, non-thrombosed internal hemorrhoids and internal hemorrhoids that prolapse with straining, but spontaneously regress to the resting position (Grade II) found on digital rectal exam. - Diverticulosis in the sigmoid colon. - The examination was otherwise normal. - No specimens collected. Recommendation: - Discharge patient to home. - Resume previous diet. - Continue present medications. - Repeat colonoscopy is not recommended due to current age (66 years or older) for screening purposes. Procedure Code(s): --- Professional --- 13313, Colonoscopy, flexible; diagnostic, including collection of specimen(s) by brushing or washing, when performed (separate procedure) Diagnosis Code(s): --- Professional --- Z12.11, Encounter for screening for malignant neoplasm of colon K64.1, Second degree hemorrhoids K64.4, Residual hemorrhoidal skin tags K57.30, Diverticulosis of large intestine without perforation or abscess without bleeding CPT copyright 2017 [employer]. All rights reserved. The codes documented in this report are preliminary and upon data coder operator review may be revised to meet current compliance requirements. Devante Cook MD 11/07/2022 10:08:55 AM This report has been signed electronically. Number of Addenda: 0 Note Initiated On: 11/07/2022 9:45 AM
--- NOTE | 2022-11-07 10:09 | OP.CCLET_ITS ---
11/07/2022 Pedro Worthy Re : Colonoscopy procedure for Hyun Garcia Dear Deacon This procedure was performed on Monday, November 07, 2022. My impressions and recommendations are as follows: Impressions : - Non-thrombosed external hemorrhoids, non-thrombosed internal hemorrhoids and internal hemorrhoids that prolapse with straining, but spontaneously regress to the resting position (Grade II) found on digital rectal exam. - Diverticulosis in the sigmoid colon. - The examination was otherwise normal. - No specimens collected. Recommendations : - Discharge patient to home. - Resume previous diet. - Continue present medications. - Repeat colonoscopy is not recommended due to current age (66 years or older) for screening purposes. My findings are described in the full procedure note, which is enclosed. If I can be of further assistance, please feel free to contact me at Doctor phone number(s): Work: . Sincerely, Devante Cook MD 11/07/2022 10:08:55 AM This report has been signed electronically.
--- NOTE | 2022-11-07 10:43 | SUR.PHASEI ---
PT STATED SHE WAS NAUSEOUS ON ARRIVAL FROM ENDO, ANESTHESIA GAVE PT 4 MG OF ZOFRAN, PT CONTINUED TO FEEL NAUSEOUS AND WAS COUGHING AND STATED SHE THOUGHT IT WAS JUST FROM COUGH, PT CONTINUED TO COUGH, LUNG SOUNDS WERE REASSESSED AND NOTED SOME RATTLING ON LEFT UPPER LOBE, ANESTHSIA WAS NOTFIED AND AN ORDER FOR AN XRAY PA AND LAT WAS GIVEN, PT SATS REMAINED 95-100% THROUGHOUT RECOVERY TIME. ANESTHESIA GAVE ORDER FOR PT TO GO TO PHASE 2 AFTER RETURNING FROM XRAY.
[2022-11-07] MEDS: Ipratropium/Albuterol Sulfate 3 ML AMPUL.NEB INHALATION (10:45)
--- NOTE | 2022-11-07 10:45 | RAD_ITS ---
INDICATION: abnormal breath sounds EXAMINATION/TECHNIQUE: X-RAY - XR Chest 2 Views COMPARISON: None. FINDINGS: LINES/DEVICES: None. LUNGS: No consolidation, edema or effusion. No pneumothorax. MEDIASTINUM AND CARDIOVASCULAR STRUCTURES: Cardiac silhouette not enlarged. Central airways and mediastinal contour are unremarkable. BONES AND SOFT TISSUES: Degenerative changes of the thoracic spine. RAD/Chest PA and Lateral IMPRESSION: No radiographic evidence of acute cardiopulmonary disease. Electronically Signed: Maninder Russo MD at 11:20 EDT ,
--- NOTE | 2022-11-07 13:33 | SUR.PHASEII ---
pt instructed to call dr fierro office tomorrow with update. pt ready for d/c.
--- NOTE | 2022-11-07 14:54 | PCM.HOSP.N ---
Hospitalist Note Patient was seen and examined by the hospitalist service at the request of her attending (Dr. North Cook) for evaluation of possible respiratory issues following a colonoscopy today. Patient underwent a colonoscopy and afterwards began bringing up quite a bit of saliva according to nursing after the procedure was over with, she also was coughing and bringing up clear phlegm. The recovery nurse listened to the patient and detected wheezing and rhonchi, she was given an aerosol treatment and the physician was notified that she had abnormal breath sounds. Chest x-ray was obtained which showed no evidence of infiltrate, patient was given an aerosol treatment, pulse ox remained above 90% on room air and patient showed no signs of respiratory distress. Patient was ambulated and her pulse ox did not drop below 90%. I was asked to see the patient for evaluation of any home-going needs or evaluation of the patient for possible admission to the hospital. On examination, the patient had expiratory wheezing which was not severe over the left lung field that was scattered in all lung lopez on the left. There was also some expiratory rhonchi on the right which cleared somewhat with coughing, patient had a rhonchorous cough which was not severe, she was not bringing up any mucus at the time my examination. Patient did not appear in any respiratory distress, she was alert and appropriate. Heart rate and rhythm was regular, patient was alert and oriented x3. Patient told this examiner that she felt that her left nasal passage was congested and she blew out quite a bit of clear mucus from the left nose after her colonoscopy At this time, I felt that the patient probably had a brief episode of aspiration, she did not vomit, so I feel that she may have aspirated on some saliva causing the wheezing and rhonchi. I went over many options with the patient including placing her on an antibiotic prophylactically, giving her an inhaler for use at home, or placing her into observation status in the hospital overnight. I discussed this with her and her who was at the bedside during the time my examination. It was the patient's feeling that she wanted to go home and that she did not have any respiratory distress, she did not necessarily want to take an antibiotic but agreed to the suggestion that I provide her a prescription for an antibiotic in case she ran a temperature over 100 degrees at home. She did not want to use an inhaler and I did not feel it was absolutely necessary to give her a prescription for an inhaler. Finally, I asked her to follow-up with her PCP in 48 hours to have her PCP evaluate her lung sounds and make sure she was not having persistent wheezing and rhonchi. Patient understood this and agreed with the discharge plan. was also in agreement with it too. I gave the patient a prescription for Amoxil 500 mg #15, one 3 times a day, she was instructed to take this if her temperature went above 100 at home, I encouraged her to see her PCP in 48 hours or sooner if she had any respiratory distress. Again patient was okay with this plan of care as was her . I relayed information to Dr. Cook concerning her discharge.
== END 2022-11-07 13:40 | disposition home or self-care (01) ==
LOC: EN 09:00 → AC 09:01
PROVIDERS: PCP Family Medicine; Referring Provider Family Medicine; Visit Provider Surgery
PROC: 0DJD8ZZ Inspection of Lower Intestinal Tract, Via Natural or Artificial Opening Endoscopic (ICD-10-PCS; CPT 45378; principal; 2022-11-07 09:55)
DX: Z12.11 Encounter for screening for malignant neoplasm of colon (principal); E78.5 Hyperlipidemia, unspecified; K57.30 Diverticulosis of large intestine without perforation or abscess without bleeding; K64.4 Residual hemorrhoidal skin tags; R06.2 Wheezing; R05.9 Cough, unspecified; K64.1 Second degree hemorrhoids
CPT/HCPCS: 45378; 71046; 94640; J7120; J2405

== ENCOUNTER → 2023-12-12 | Outpatient (CLI) | payer MEDICARE, OTHER, SELFPAY ==
[2023-12-12 12:50] LABS: Absolute Lymphocyte Count 2.17 X10^3/uL (0.83-4.51); Basophil# 0.02 X10^3/uL; Basophil% 0.4 % (0-1); Eosinophil# 0.07 X10^3/uL; Eosinophils% 1.2 % (0-5); Hematocrit 43.1 % (37-47); Hemoglobin 14.1 g/dL (12.0-15.0); Lymphocyte # 2.17 X10^3/ul (0.83-4.51); Lymphocyte % 38.1 % (19-41); Mean Corp Hgb Conc 32.7 g/dL (32-36); Mean Corpuscular Hgb 28.9 pg (27.0-32.0); Mean Corpuscular Volume 88.3 fL (81-99); Mean Platelet Vol. 10.6 fl (6.2-12.0); Monocyte# 0.38 X10^3/uL; Monocyte% 6.7 % (0-10); NRBC Flagged by Analyzer 0 % (0-5); Neutrophil # 3.04 X10^3/uL (2.7-7.7); Neutrophil % 53.4 % (47-70); Platelet Count 207 K/mm3 (150-450); RBC Distribution Width CV 14.5 % (11.6-14.6); RBC Distribution Width SD 46.4 fl (35.1-43.9); Red Blood Count 4.88 M/mm3 (4.2-5.4); White Blood Count 5.7 K/mm3 (4.4-11.0)
[2023-12-12 13:07] LABS: AST(SGOT) 22 U/L (15-37); Alanine Aminotransfer ALT/SGPT 26 U/L (13-56); Albumin, Serum 3.6 g/dL (3.2-5.0); Alkaline Phosphatase 86 U/L (45-117); Anion Gap 4 (5-15); BUN 16 mg/dL (7-18); Calcium,Total 9.3 mg/dL (8.5-10.1); Chloride 109 mmol/L (98-107); Cholesterol 138 mg/dL (200); Creatinine, Serum 0.67 mg/dL (0.55-1.02); EST Glomerular Filtration Rate 92 mL/min (>60); Est Glom Filt Rate - Afr Amer 112 mL/min (>60); Ferritin 10 ng/mL (8-252); Globulin 3.7 g/dL (2.2-4.2); Glucose 109 mg/dL (74-106); High Density Lipoprotein 53 mg/dL; Potassium 3.9 mmol/L (3.5-5.1); Protein, Total 7.3 g/dL (6.4-8.2); Sodium Level 140 mmol/L (136-145); Thyroid Stim Hormone (TSH) 2.38 uIU/mL (0.358-3.74); Triglycerides 116 mg/dL; Very Low Density Lipoprotein 23 mg/dL (5-40)
[2023-12-12 13:08] LABS: Vitamin D,25 Hydroxy 43.8 ng/mL
== END | disposition home or self-care (01) ==
LOC: BFHLAB 09:29
PROVIDERS: PCP Family Medicine; Referring Provider Family Medicine; Visit Provider Family Medicine
DX: Z51.81 Encounter for therapeutic drug level monitoring (principal); E78.5 Hyperlipidemia, unspecified; E04.1 Nontoxic single thyroid nodule; E55.9 Vitamin D deficiency, unspecified
CPT/HCPCS: 36415; 80053; 80061; 82306; 82728; 84443; 85025

== ENCOUNTER → 2024-07-28 | Outpatient (CLI) | payer MEDICARE, OTHER, SELFPAY ==
[2024-07-28 18:18] LABS: PTHIN 50 pg/mL (11-61)
== END | disposition home or self-care (01) ==
LOC: BFHLAB 15:55
PROVIDERS: PCP Family Medicine; Visit Provider Family Medicine
DX: M81.0 Age-related osteoporosis without current pathological fracture (principal)
CPT/HCPCS: 36415; 83970

== ENCOUNTER → 2024-08-25 | Outpatient (CLI) | payer MEDICARE, OTHER, SELFPAY | END | disposition home or self-care (01) | LOC: BFHLAB 11:46 | PROVIDERS: PCP Family Medicine; Visit Provider Family Medicine | DX: R82.90 Unspecified abnormal findings in urine (principal) | CPT/HCPCS: 87077; 87086; 87088; 87186 ==

== ENCOUNTER → 2024-09-29 | Outpatient (CLI) | payer MEDICARE, OTHER, SELFPAY ==
--- NOTE | 2024-09-29 12:50 | US_ITS ---
PROCEDURE: KIDNEY AND BLADDER 09/29/2024 REASON FOR EXAM: UTI TECHNIQUE: Bilateral renal ultrasound. COMPARISON: Prior study dated July 24, 2019. FINDINGS: RIGHT Kidney Size: 10.9 cm x 5.3 cm x 5.9 cm Volume: 178.25 mL Cortical Thickness (if discernible): 1.6 cm (>6mm is normal) There is a 7 mm x 8 mm x 8 mm renal cyst. LEFT Kidney Size: 11.3 cm x 4.8 cm x 5 cm Volume: 142 mL Cortical Thickness (if discernible): 1.5 cm (>6mm is normal) Urinary bladder: Prevoid volume: 320 mL Postvoid volume: 178 mL. US/Kidney and Bladder IMPRESSION: Small right renal cyst. Postvoid residual. Reading Location: [place] [id number]
== END | disposition home or self-care (01) ==
LOC: US 12:49
PROVIDERS: PCP Family Medicine; Referring Provider Urology; Visit Provider Urology
DX: N39.0 Urinary tract infection, site not specified (principal)
CPT/HCPCS: 76770

== ENCOUNTER → 2024-12-10 | Outpatient (CLI) | payer MEDICARE, OTHER, SELFPAY ==
[2024-12-10 10:40] LABS: Hematocrit 40.2 % (37-47); Hemoglobin 13.2 g/dL (12.0-15.0); Immature Granulocytes Count 0.010 X10^3/uL (0.0-0.0); Mean Corp Hgb Conc 32.8 g/dL (32-36); Mean Corpuscular Volume 88.0 fL (81-99); Mean Platelet Vol. 10.2 fl (6.2-12.0); NRBC Flagged by Analyzer 0 % (0-5); Platelet Count 213 K/mm3 (150-450); RBC Distribution Width CV 14.8 % (11.6-14.6); RBC Distribution Width SD 47.8 fl (35.1-43.9); Red Blood Count 4.57 M/mm3 (4.2-5.4); White Blood Count 5.2 K/mm3 (4.4-11.0)
[2024-12-10 11:53] LABS: AST(SGOT) 26 U/L (<=31); Alanine Aminotransfer ALT/SGPT 24 U/L (<=34); Albumin, Serum 4.2 g/dL (3.4-4.8); Alkaline Phosphatase 56 U/L (35-104); Anion Gap 10 (5-15); BUN 15 mg/dL (4-19); BUN/Creat Ratio 23.2 RATIO (10-20); Calcium,Total 9.2 mg/dL (7.6-11.0); Carbon Dioxide 23.6 mmol/L (21.0-32.0); Chloride 107 mmol/L (98-108); Cholesterol 134 mg/dL (<=200); Ferritin 14 ng/mL (22-378); Globulin 2.7 g/dL (2.2-4.2); Glucose 116 mg/dL (70-99); Low Density Lipoprotein Calc. 62 mg/dL; Potassium 4.0 mmol/L (3.3-5.1); Triglycerides 105 mg/dL; Very Low Density Lipoprotein 21 mg/dL (5-40); Vitamin D,25 Hydroxy 43.8 ng/mL (30-100); cholesterol:hdl ratio screen 2.63
== END | disposition home or self-care (01) ==
LOC: MTLAB 08:28
PROVIDERS: PCP Family Medicine; Referring Provider Family Medicine; Visit Provider Family Medicine
DX: E78.5 Hyperlipidemia, unspecified (principal); E83.119 Hemochromatosis, unspecified; M81.0 Age-related osteoporosis without current pathological fracture; Z51.81 Encounter for therapeutic drug level monitoring
CPT/HCPCS: 36415; 80053; 80061; 82306; 82728; 85025

== ENCOUNTER → 2024-12-26 | Outpatient (CLI) | payer MEDICARE, OTHER, SELFPAY ==
--- NOTE | 2024-12-26 10:35 | RAD_ITS ---
PROCEDURE: ABDOMEN SINGLE VIEW 12/26/2024 REASON FOR EXAM: KUB- BLADDER STONES TECHNIQUE: ABDOMEN SINGLE VIEW COMPARISON: None. FINDINGS: There is a nonobstructive bowel gas pattern. There are no abnormal soft tissue calcifications or radiopaque foreign bodies. There is multilevel degenerative disc disease of the lower thoracic and lumbar spine. There is levoscoliosis of the lumbar spine. RAD/Abdomen Single View IMPRESSION: No evidence of acute abdominal pathology. Reading Location: [id number]
== END | disposition home or self-care (01) ==
LOC: MTRAD 10:25
PROVIDERS: PCP Family Medicine; Referring Provider Urology; Visit Provider Urology
DX: N21.0 Calculus in bladder (principal)
CPT/HCPCS: 74018